=== PATIENT | female | born 1945 | race Caucasian/White ===

== ENCOUNTER 2023-02-02 19:57 | Emergency (ER) | payer BC, OTHER ==
[~2023-02-02] VITALS: Ht 162.6 cm; Wt 68.2 kg
[2023-02-02] MEDS ORDERED: cloNIDine HCL 0.1 MG TAB PO ONE (20:30)
[2023-02-02] MEDS ORDERED: HYDROcodone-ACET 5/325MG TAB PO ONE (22:45)
[2023-02-02] MEDS ORDERED: traMADol HCL 50 MG TAB PO ONE (23:00)
== END 2023-02-02 23:31 | disposition home or self-care (01) ==
LOC: ER 19:57
DX: S82.62XA Displaced fracture of lateral malleolus of left fibula, initial encounter for closed fracture (principal); F17.210 Nicotine dependence, cigarettes, uncomplicated; M54.2 Cervicalgia; W10.8XXA Fall (on) (from) other stairs and steps, initial encounter; Y93.89 Activity, other specified; Y92.89 Other specified places as the place of occurrence of the external cause; Y99.8 Other external cause status
CPT/HCPCS: 70450; 72125; 73590; 73600; 73630